=== PATIENT | female | born 1985 | race Caucasian/White ===

== ENCOUNTER 2017-02-17 14:02 | Outpatient (CLI) | payer BC ==
[2017-02-17 14:25] LABS: APPEARANCE,URINE CLEAR; BILIRUBIN,URINE NEGATIVE (NEGATIVE); GLUCOSE, URINE NEGATIVE (NEGATIVE); KETONES,URINE TRACE mg/dL (NEGATIVE); LEUKOCYTE ESTERASE,URINE NEGATIVE (NEGATIVE); NITRITE,URINE NEGATIVE (NEGATIVE); PROTEIN,URINE NEGATIVE (NEGATIVE); URINE SPECIFIC GRAVITY 1.005; UROBILINOGEN,URINE NEGATIVE mg/dL (<2.0)
[2017-02-17 14:42] LABS: URINE BARBITURATES SCREEN NEGATIVE; URINE METHADONE SCREEN NEGATIVE; URINE OPIATES LOW NEGATIVE; URINE PHENCYCLIDINE SCREEN NEGATIVE
[2017-02-17] MEDS ORDERED: RINGERS SOLUTION,LACTATED 1,000 ML IV ONE (15:00)
--- NOTE | 2017-02-17 21:43 | RADIOLOGY REPORT (SQ) ---
EXAM DESCRIPTION: U/S OB LIMITED COMPLETED DATE/TIME: 02/17/2017 9:36 pm REASON FOR STUDY: GERMAIN, [place] COMPARISON: None. TECHNIQUE: Limited transabdominal grayscale ultrasound for evaluation of specific requested obstetri aydee parameters. LIMITATIONS: None. FINDINGS: GERMAIN: 9.4 cm. FHR: 130 beats per minute. PRESENTATION: Cephalic. OTHER: No other significant findings. IMPRESSION: LIMITED OBSTETRICAL ULTRASOUND WITH MEASURED PARAMETERS DELINEATED ABOVE. Trimester of : 3rd trimester. TECHNICAL DOCUMENTATION: JOB ID: [id number] [employer]- All Rights Reserved
--- NOTE | 2017-02-17 22:39 | Non Stress Test Report ---
Non Stress Test Datetime Report Generated by CPN: 02/17/2017 22:39 DEMOGRAPHIC EGA NST: 37.1 INDICATION Indication for Study: Ordered by Provider; Other Indication for Study (NST) Other: LC MONITORING Monitor Explained: Monitor Explained; Test Explained; Patient Verbalized Understanding Time on Monitor: 02/17/2017 14:17 Time off Monitor: 02/17/2017 20:51 NST Duration: 394 NST INTERVENTIONS NST Interventions: IV Fluids Physician Notified NST: Dr Mcdermott BABY A: [id number] BABY A Movement : Present Contraction Frequency : Irregular FHR Baseline : 135 Accelerations : 15X15 Decelerations : None Variability : Moderate 6-25bpm NST Review: Meets Criteria for Reactive NST NST Review and Verified By : any alexandre NST Results: Reactive NST REPORT Report Trigger: Send Report
== END 2017-02-17 22:01 | disposition home or self-care (01) ==
LOC: LC 14:02 → LR 17:15 → UNDOADMIN 17:15 → LC 22:01
PROVIDERS: ATTEND Obstetrics & Gynecology Gynecology
DX: Z34.83 Encounter for supervision of other normal pregnancy, third trimester (principal); Z3A.37 37 weeks gestation of pregnancy
CPT/HCPCS: 59025; 76815; 80307; 81001

== ENCOUNTER 2017-03-09 10:46 | Inpatient (IN) | payer BC ==
[2017-03-09] MEDS ORDERED: PENICILLIN G POTASSIUM 5,000,000 UNIT in DEXTROSE 5%-WATER 100 ML IV ONE (11:38)
[2017-03-09] MEDS ORDERED: RINGERS SOLUTION,LACTATED 1,000 ML IV ONE (11:40)
[2017-03-09] MEDS ORDERED: RINGERS SOLUTION,LACTATED 1,000 ML IV PRN (11:40)
[2017-03-09] MEDS ORDERED: OXYTOCIN/NORMAL SALINE 20 UNIT/1,000 ML RTUINJ IV PRN (11:44)
[2017-03-09 11:51] LABS: AMNISURE (ROM) NEGATIVE (NEGATIVE)
[2017-03-09] MEDS ORDERED: MISOPROSTOL 0.2 MG TABLET ONE (12:38)
[2017-03-09] MEDS ORDERED: LIDOCAINE 1% INJ-PF (10 MG/ML) 30 ML SDV ONE (12:38)
[2017-03-09] MEDS ORDERED: OXYTOCIN/NORMAL SALINE 20 UNIT/1,000 ML RTUINJ ONE ×2 (12:38→14:41)
[2017-03-09 13:47] LABS: ABSOLUTE EOSINOPHILS # (AUTO) 0.1 10^3/uL (0.0-0.6); ABSOLUTE LYMPHOCYTES (AUTO) 2.1 10^3/uL (0.5-4.7); ABSOLUTE MONOCYTES (AUTO) 0.5 10^3/uL (0.1-1.4); ABSOLUTE NEUT (AUTO) 7.7 10^3/uL (1.7-8.2); BASOPHILS % (AUTO) 0.4 % (0-2); EOSINOPHILS % (AUTO) 0.8 % (0-6); HEMATOCRIT 39.9 % (36.0-47.0); HGB HCT DIFFERENCE 2.1; LYMPHOCYTES % (AUTO) 19.8 % (13-45); MEAN CORPUSCULAR HEMOGLOBIN 31.3 pg (27.0-33.4); MEAN CORPUSCULAR HGB CONC 35.1 g/dL (32.0-36.0); MEAN CORPUSCULAR VOLUME 89 fl (80-97); MONOCYTES % (AUTO) 4.9 % (3-13); RED BLOOD COUNT 4.46 10^6/uL (3.72-5.28); RED CELL DISTRIBUTION WIDTH 13.1 % (11.5-14.0); SEGMENTED NEUTROPHILS % (AUTO) 74.1 % (42-78); WHITE BLOOD COUNT 10.4 10^3/uL (4.0-10.5)
[2017-03-09 14:46] LABS: ADD HIVPANEL? NO; HIV (1 AND 2) ANTIBODY NEGATIVE (NEGATIVE)
[2017-03-09 15:14] LABS: APPEARANCE,URINE CLEAR; BILIRUBIN,URINE NEGATIVE (NEGATIVE); GLUCOSE, URINE NEGATIVE (NEGATIVE); KETONES,URINE NEGATIVE (NEGATIVE); LEUKOCYTE ESTERASE,URINE NEGATIVE (NEGATIVE); NITRITE,URINE NEGATIVE (NEGATIVE); PROTEIN,URINE NEGATIVE (NEGATIVE); URINE SPECIFIC GRAVITY 1.008; UROBILINOGEN,URINE NEGATIVE mg/dL (<2.0)
[2017-03-09] MEDS ORDERED: PENICILLIN G-K 5 MILLION UNIT VIAL ONE ×3 (15:20→23:08)
[2017-03-09 15:39] LABS: URINE BARBITURATES SCREEN NEGATIVE; URINE METHADONE SCREEN NEGATIVE; URINE OPIATES LOW NEGATIVE; URINE PHENCYCLIDINE SCREEN NEGATIVE
--- NOTE | 2017-03-09 16:51 | L&D Progress Notes ---
PROGRESS NOTES Datetime Report Generated by CPN: 03/09/2017 16:51 PROGRESS NOTE Impression: Normal Progression of Labor Procedures: Sterile Vag Exam Procedures- Other: Cooks Catheter placement Plan: Continue Present Management; Induction; Cervical Ripening Informed Consent Obtained: Vaginal Delivery; Risks, Benefits and Alternatives Discussed Vital Signs : Within Normal Limits Comment: doing well now on 16 of pitocin. Cvx 2cm. Cooks catheter placed. Pt tolerated well. Epidural and pain meds upon pt request. Pelvis adequate for continue CLAUDETTE. EFW 7-8# VAGINAL EXAM Dilatation: 1 Dilatation: 2 Effacement: 50 Effacement: 50 Station: -3 Station: high Contractions: q 2 MEMBRANES Membranes: Intact Membranes: Intact FETUS A FHR - Baseline: 150 Monitoring: External US Variability: Moderate 6-25bpm Accelerations: 15X15 Decelerations: None FHR Category: Category I : 40.0 Presentation: Vertex SIGNATURE SIGNATURE: [id number];[id number] SIGNATURE: [id number] Signature: with User ID: [email or web address] : I personally evaluated and examined the patient in conjunction with the MLP and agree with the assessment, treatment plan and disposition.
[2017-03-09] MEDS ORDERED: NALBUPHINE HCL INJ 10 MG/1 ML AMPULE INJ ONE (16:54)
[2017-03-09] MEDS ORDERED: NALBUPHINE HCL INJ 10 MG/1 ML AMPULE ONE (17:35)
[2017-03-09] MEDS: PENICILLIN G POTASSIUM 2,500,000 UNIT in DEXTROSE 5%-WATER 50 ML IV SCH ×2 (19:33→23:29)
[2017-03-09] MEDS ORDERED: BUPIVACAINE HCL 0.25 % INJ/PF (2.5 MG/1 ML) 30 ML VIAL ONE (20:11)
[2017-03-09] MEDS ORDERED: EPHEDRINE SULFATE INJ 50 MG/1 ML AMPULE ONE (20:11)
[2017-03-09] MEDS ORDERED: FENTANYL/BUPIVACAINE/NS/PF 200 MCG/100 ML RTUINJ EPI ONE (20:11)
--- NOTE | 2017-03-09 20:15 | L&D Progress Notes ---
PROGRESS NOTES Datetime Report Generated by CPN: 03/09/2017 20:15 PROGRESS NOTE Impression: Normal Progression of Labor; Reassuring Heart Rate; Rupture of Membranes Procedures: Sterile Vag Exam Procedures- Other: Cooks catheter removed at it was in vagina Plan: Continue Present Management; Induction; Anticipate Vaginal Delivery Informed Consent Obtained: Vaginal Delivery; Induction of Labor; Risks, Benefits and Alternatives Discussed Vital Signs : Reviewed Comment: Pt called out and felt big gush of water. SROM with clear fluid. Cooks catheter removed and SROM confirmed. Cvx change noted. SHe desires epidural now. Anticipate . Pelvis adequate for CLAUDETTE VAGINAL EXAM Dilatation: 5 Effacement: 70 Station: -2 MEMBRANES Membranes: Ruptured Amniotic Fluid Color: Clear FETUS A FHR - Baseline: 125 Monitoring: External US Variability: Moderate 6-25bpm Accelerations: 15X15 Decelerations: None FHR Category: Category II FETUS C SIGNATURE: [id number];[id number] Signature: with User ID: [email or web address]
--- NOTE | 2017-03-10 00:26 | L&D Progress Notes ---
PROGRESS NOTES Datetime Report Generated by CPN: 03/10/2017 00:26 PROGRESS NOTE Impression: Normal Progression of Labor; Reassuring Heart Rate Procedures: Scalp Electrode; Sterile Vag Exam Plan: Induction; Anticipate Vaginal Delivery Informed Consent Obtained: Vaginal Delivery; Induction of Labor; Risks, Benefits and Alternatives Discussed Vital Signs : Reviewed; Within Normal Limits Comment: Intermittent late decels which resolve with positioning. Early decels. FSE replaced due to previously placed FSE came off during cervical exam. Prior exam c/w ng bulb cervix. Now with some feta descent and mild change in cervical exam. WIll continue position change and amnioinfusion. If NRFHTs or signs of distress will perform section. Pt and surrogate family area aware. VAGINAL EXAM Dilatation: 7 Effacement: 70 Station: -1 Contractions: q 3-5 MEMBRANES Membranes: Ruptured Amniotic Fluid Color: Clear FETUS A FHR - Baseline: 130 Monitoring: External US Variability: Moderate 6-25bpm Accelerations: 15X15 Decelerations: Early; Late; Variable FHR Category: Category II FETUS C SIGNATURE: [id number];[id number] Signature: Electronically signed by Tg Solis MD ([facility]) on 03/10/2017 at 00:26 with User ID: [email or web address]
[2017-03-10] MEDS ORDERED: LIDOCAINE 2% INJ-PF (20 MG/ML) 10 ML AMPUL ONE (01:44)
[2017-03-10] MEDS ORDERED: PENICILLIN G-K 5 MILLION UNIT VIAL ONE (03:05)
[2017-03-10] MEDS: PENICILLIN G POTASSIUM 2,500,000 UNIT in DEXTROSE 5%-WATER 50 ML IV SCH (03:16)
[2017-03-10] MEDS ORDERED: PROMETHAZINE HCL 25 MG SUPP.RECT PR PRN (04:21)
[2017-03-10] MEDS ORDERED: GLYCERIN/WITCH HAZEL LEAF 1 EACH MED..PAD TP PRN (04:21)
[2017-03-10] MEDS ORDERED: MAGNESIUM HYDROXIDE SUSP 30 ML UDCUP PO PRN (04:21)
[2017-03-10] MEDS ORDERED: PROMETHAZINE HCL 25 MG TABLET PO PRN (04:21)
[2017-03-10] MEDS ORDERED: OXYTOCIN/NORMAL SALINE 20 UNIT/1,000 ML RTUINJ IV PRN (04:21)
[2017-03-10] MEDS ORDERED: BENZOCAINE/MENTHOL AEROSOL SPRAY 56 ML TOP PRN (04:21)
[2017-03-10] MEDS ORDERED: ACETAMINOPHEN 650 MG SUPP.RECT PR PRN (04:21)
[2017-03-10] MEDS ORDERED: PROMETHAZINE HCL INJ 25 MG/1 ML VIAL IV PRN (04:21)
[2017-03-10] MEDS ORDERED: NA PHOS,M-B/NA PHOS,DI-BA (ADULT) 133 ML ENEMA PR PRN (04:21)
[2017-03-10] MEDS ORDERED: ACETAMINOPHEN WITH CODEINE #3 TABLET PO PRN ×2 (04:21)
[2017-03-10] MEDS ORDERED: MEASLES,MUMPS&RUBELLA VACC/PF 0.5 ML VIAL SUBCUT PRN (04:21)
[2017-03-10] MEDS ORDERED: PSEUDOEPHEDRINE HCL 30 MG TABLET PO PRN (04:21)
[2017-03-10] MEDS ORDERED: DIPH/PERTUSS(ACELL)/TETANUS VAC/PF 0.5 ML SYR (>=10YO) IM PRN (04:21)
[2017-03-10] MEDS ORDERED: DIBUCAINE 1% OINTMENT 28 GM TP PRN (04:21)
[2017-03-10] MEDS ORDERED: DIPHENHYDRAMINE HCL 25 MG CAPSULE PO PRN (04:21)
[2017-03-10] MEDS ORDERED: ZOLPIDEM TARTRATE 5 MG TABLET PO PRN (04:21)
--- NOTE | 2017-03-10 05:52 | Delivery Summary ---
Del Sum A-C Datetime Report Generated by CPN: 03/10/2017 05:51 DELIVERY PERSONNEL DELIVERY PERSONNEL: [id number] Delivery Doctor:: Tg Solis MD Anesthesiologist:: Lakhwinder Mora MD Labor and Delivery Nurse:: Kaylen Valentin RNmaintenance painter apprentice Nurse:: Madeleine Delatorre RN Salt Lifter:: Nadia Do RN Chopper Gun Operator/ASH PIT WORKER: Karli Blood CNA MATERNAL INFORMATION Delivery Anesthesia: Epidural Medications After Delivery: Pitocin Drip 20 Units/1000ml NSS; Other-Please Comment Meds After Delivery Comment: Cytotec 1000 WV Estimated Blood Loss (ml): 400 Maternal Complications: None Provider Comments: VMI delivered in Direct OA presentation. No nuchal cord. Shoulders and body delivered without difficulty. Cord doubly clamped and cut and infant to father for skin to skin. Placenta delivered intact spontaneously. FF at U then with intermittent atony. Therefore 1000mcg cytotec WV given. FF at U after cytotec. No perineal lacerations. Good hemostasis. Gestational carrier and baby doing well upon provider leaving the room. Baby doing skin to skin with father. LABOR SUMMARY EDC: 03/09/2017 00:00 No. Babies in Womb: 1 Attempted: No Labor Anesthesia: Epidural LABOR INFORMATION Reason for Induction: Oligohydramnios Onset of Labor: 03/09/2017 20:01 Complete Dilatation: 03/10/2017 03:19 Cervical Ripening Agents: Caba Balloon Oxytocin: Induction Group B Beta Strep: Positive Antibiotics # of Doses: 4 Antibiotics Time of Last Dose: 315 Name of Antibiotic Given: PCN Steroids Given: None Reason Steroids Not Administered: Not Applicable MEMBRANES Membranes Rupture Method: Spontaneous Rupture of Membranes: 03/09/2017 20:01 Length of Rupture (hr): 8.05 Amniotic Fluid Color: Clear Amniotic Fluid Amount: Moderate Amniotic Fluid Odor: Normal STAGES OF LABOR Stage 1 hr: 7 Stage 1 min: 18 Stage 2 hr: 0 Stage 2 min: 45 Stage 3 hr: 0 Stage 3 min: 5 Total Time in Labor hr: 8 Total Time in Labor min: 8 VAGINAL DELIVERY Episiotomy: None Laceration #1: None Laceration Extension #1: N/A Laceration Repair: Not Applicable Sponge Count Correct: N/A Sharps Count Correct: N/A CSECTION DELIVERY Primary Indication: N/A Secondary Indication: N/A CSection Incidence: N/A Labor: N/A Elective: N/A CSection Incision: N/A BABY A INFORMATION Infant Delivery Date/Time: 03/10/2017 04:04 Method of Delivery: Vaginal Born in Route : No : N/A Forceps: N/A Vacuum Extraction: N/A Shoulder Dystocia : No PRESENTATION/POSITION BABY A Presentation: Cephalic Cephalic Presentation: Vertex Vertex Position: OA Breech Presentation: N/A PLACENTA INFORMATION BABY A Placenta Delivery Time : 03/10/2017 04:09 Placenta Method of Delivery: Spontaneous Placenta Status: Delivered SCORES BABY A Heart Rate 1 min: >100 bpm Resp Effort 1 min: Good Cry Reflex Irritability 1 min: Cough or Sneeze or Pulls Away Muscle Tone 1 min: Active Motion Color 1 min: Body [place], Extremities Blue SCORE 1 MIN: 9 Heart Rate 5 min: >100 bpm Resp Effort 5 min: Good Cry Reflex Irritability 5 min: Cough or Sneeze or Pulls Away Muscle Tone 5 min: Active Motion Color 5 min: Body [place], Extremities Blue SCORE 5 MIN: 9 INFORMATION BABY A Gestational Age at Delivery: 40.1 Gestational Status: Full Term- 39- 40.6 Weeks Outcome : Liveborn Infant Condition : Stable Sex: Male IDENTIFICATION BABY A Verification Date/Time: 03/10/2017 04:17 ID Band Number: [id number] Mother's Name Verified: Yes RN Verifying Infant: CBalbir Raines RN Additional Verifying Personnel: Donis Do RN WEIGHT/LENGTH BABY A Birthweight (gm): 3680 Infant Weight (lb): 8 Infant Weight (oz): 2 Infant Length (in): 21.00 Length (cm): 53.34 CORD INFORMATION BABY A No. Cord Vessels: 3 Nuchal Cord : N/A Cord Blood Taken: Yes-For Eval (Mom's Blood Type - or O+) Suction: Mouth; Nose ASSESSMENT BABY A Infant Complications: Multiple Late Decels; Multiple Variable Decels Physical Findings at Delivery: Caput Succedaneum; Puncture Wound from Scalp Electrode Infant Respirations: Appears Normal Skin to Skin: Yes Skin to Skin Time (min): 60 Managed Care Manager/ALS Called : No Care By: Gera Delatorre RN Transferred To: Remains with Mother BABY B INFORMATION : N/A SIGNATURES Signature: with User ID: [email or web address] : I personally evaluated and examined the patient in conjunction with the MLP and agree with the assessment, treatment plan and disposition.
[2017-03-10] MEDS: IBUPROFEN 800 MG TABLET PO SCH ×3 (06:00→21:53)
--- NOTE | 2017-03-10 06:08 | Admission Physical ---
Datetime Report Generated by CPN: 03/10/2017 06:08 CURRENT ADMISSION Chief Complaint: Other Chief Complaint Other: Oligohydramnios noted on sono at [facility] Indication for Induction: Oligohydramnios Indication for Induction: Term, Intrauterine ; Induction of Labor Admit Plan: Admit to Unit; Initiate Labor Induction Protocol ALLERGIES Medication Allergies: No Medication Allergies: No Known Allergies (03/09/2017) Medication Allergies: No Known Allergies (02/17/2017) Latex: No Latex Allergies Food Allergies: None Environmental Allergies: None OBSTETRICAL HISTORY EDC: 03/09/2017 00:00 : 3 Para: 2 Gestational Diabetes: No Rh Sensitization: No Incompetent Cervix: No [place]: No Infertility: No ART Treatment: No Uterine Anomaly: No IUGR: No Hx Previous C/S: No Macrosomia: No Hx Loss/Stillborn: No PIH: No Hx : No Placenta Previa/Abruption: No Depression/PP Depression: No PTL/PROM: No Post Hemorrhage: No Current Procedures: Ultrasound Obstetrical History Comments: G1 - 2010, , Baby Girl G2 - 2012, , Baby Boy G3 - Current - Surrogate SEE RECORDS Alcohol: No Marijuana : No Cocaine: No Other Illicit Drugs: No Cigarettes: Never Smoker. [id number] MEDICAL HISTORY Diabetes: No Blood Transfusion: No Pulmonary Disease (Asthma, TB): No Breast Disease: No Hypertension: No Investigator Cash Shortage Surgery: No Heart Disease: No Hosp/Surgery: Yes Autoimmune Disorder: No Anesthetic Complications: No Kidney Disease: No Abnormal Pap Smear: No Neuro/Epilepsy: No Psychiatric Disorders: No Other Medical Diseases: No Hepatitis/Liver Disease: No Significant Family History: No Varicosities/Phlebitis: No Trauma/Violence : No Thyroid Dysfunction: No Medical History Comments: 2010 - Gallbladder removed; 2011 - Breast Augmentation INFECTIOUS HISTORY Gonorrhea: No Genital Herpes: No Chlamydia: No Tuberculosis: No Syphilis: No Hepatitis: No HIV/AIDS Exposure: No Rash or Viral Illness: No HPV: No PHYSICAL EXAM General: Normal HEENT: Normal Neurologic: Normal Thyroid: Deferred Heart: Normal Lungs: Normal Breast: Deferred Back: Normal Abdomen: Normal Genitourinary Exam: Deferred Extremities: Normal DTRs: Normal Pelvic Type: Adequate Physical Exam Comments: Gravid Vital Signs: Reviewed; Within Normal Limits VAGINAL EXAM Dilatation: 7 Dilatation: 5 Dilatation: 1 Dilatation: 2 Effacement: 70 Effacement: 70 Effacement: 50 Effacement: 50 Station: -1 Station: -2 Station: -3 Station: high Contraction Comments: q 3-5 Contraction Comments: q 2 MEMBRANES Membranes: Ruptured Membranes: Ruptured Membranes: Intact Membranes: Intact Amniotic Fluid Color: Clear Amniotic Fluid Color: Clear FETUS A EGA: 40.0 Monitoring: External US FHR- Baseline: 150 Variability: Moderate 6-25bpm Accelerations: 15X15 Decelerations: None FHR Category: Category I Presentation: Vertex Admit Comment: Surrogate-Gestational carrier Synthroid for IVF GBS positive-antibiotics ordered Oligohydramnios Plan: IOL and Cook's catheter PLANS FOR LABOR AND DELIVERY Labor and Delivery: None Pain Management: Epidural Feeding Preference: Formula Benefit of Breast Feed Discussed: Yes INFORMED CONSENT Informed Consent Obtained: Vaginal Delivery; Induction of Labor; Risks, Benefits and Alternatives Discussed Informed Consent Obtained: Vaginal Delivery; Induction of Labor; Risks, Benefits and Alternatives Discussed Informed Consent Obtained: Vaginal Delivery; Risks, Benefits and Alternatives Discussed Assignment: Tg Solis MD Signature: with User ID: Rob : with User ID: [email or web address] : I personally evaluated and examined the patient in conjunction with the MLP and agree with the assessment, treatment plan and disposition.
[2017-03-10] MEDS ORDERED: FAMOTIDINE 20 MG TABLET PO SCH (10:00)
[2017-03-10] MEDS: PRENATAL VITAMIN W DHA CAPSULE PO SCH (10:16)
[2017-03-10] MEDS: DOCUSATE SODIUM 100 MG CAPSULE PO SCH ×2 (10:17→17:14)
[2017-03-10] MEDS: FERROUS SULFATE 325 MG TABLET PO SCH ×2 (10:17→17:14)
[2017-03-10] MEDS: SENNOSIDES/DOCUSATE 8.6-50 MG 1 EACH TABLET PO SCH (10:17)
[2017-03-10] MEDS ORDERED: METHYLERGONOVINE MALEATE 0.2 MG TABLET PO ONE (13:00)
[2017-03-10] MEDS: METHYLERGONOVINE MALEATE 0.2 MG TABLET PO SCH (17:14)
[2017-03-11] MEDS: METHYLERGONOVINE MALEATE 0.2 MG TABLET PO SCH ×2 (00:17→06:22)
[2017-03-11] MEDS: IBUPROFEN 800 MG TABLET PO SCH (06:25)
[2017-03-11 07:59] LABS: HEMATOCRIT 37.4 % (36.0-47.0); HEMOGLOBIN 12.8 g/dL (12.0-15.5); MEAN CORPUSCULAR HEMOGLOBIN 30.9 pg (27.0-33.4); MEAN CORPUSCULAR HGB CONC 34.2 g/dL (32.0-36.0); MEAN CORPUSCULAR VOLUME 91 fl (80-97); RED BLOOD COUNT 4.14 10^6/uL (3.72-5.28); RED CELL DISTRIBUTION WIDTH 13.3 % (11.5-14.0); WHITE BLOOD COUNT 13.3 10^3/uL (4.0-10.5)
[2017-03-11] MEDS: SENNOSIDES/DOCUSATE 8.6-50 MG 1 EACH TABLET PO SCH (10:09)
[2017-03-11] MEDS: FERROUS SULFATE 325 MG TABLET PO SCH (10:09)
[2017-03-11] MEDS: DOCUSATE SODIUM 100 MG CAPSULE PO SCH (10:10)
[2017-03-11] MEDS: PRENATAL VITAMIN W DHA CAPSULE PO SCH (10:10)
--- NOTE | 2017-03-11 10:23 | PDOC PROGRESS REPORT ---
Subjective-OB Subjective: Post Delivery Day: 32 year old. Denies any needs at this time was taking po methergine for clots ff@u-1 mild lochia reports big clot this morning with no follow up bleeding slept well with ambien ambulating well d/c home with follow up d/c methergine precautions reviewed Physical Exam (OB) Vital Signs: Temp Pulse Resp BP Pulse Ox 97.4 F 71 16 118/81 100 03/11/17 09:26 03/11/17 09:26 03/11/17 09:26 03/11/17 09:26 03/11/17 09:26 Intake & Output 03/10/17 03/11/17 03/12/17 06:59 06:59 06:59 Weight 79.15 kg - PIH/Pre-Eclampsia DTR's: 2 + Clonus: Negative Headache: Absent Epigastric Pain: No Visual Changes: No - Lochia Lochia Amount: Small 10-25 ml Lochia Color: Rubra/Red - Abdomen Description: Soft, Round Hernia Present: No Fundal Description: Firm, Midline Fundal Height: u/u - u/2 Objective-Diagnostic Laboratory: 03/11/17 07:25 03/11/17 07:25 WBC 13.3 H RBC 4.14 Hgb 12.8 Hct 37.4 MCV 91 MCH 30.9 MCHC 34.2 RDW 13.3 Plt Count 183
--- NOTE | 2017-03-11 10:25 | PDOC DISCHARGE SUMMARY ---
Final Diagnosis Discharge Date: 03/11/17 - Final Diagnosis (1) Oligohydramnios Is this a current diagnosis for this admission?: Yes Discharge Data - Discharge Medication Home Medications: Levothyroxine Sodium 25 mcg PO DAILY 02/17/17 No122/Iron/Folic Acid [ Multi Tablet] 1 each PO DAILY 02/17/17 Reason(s) for Admission: Induction of Labor Procedures: NST, Ultrasound Intrapartum Procedure(s): Spontaneous Vaginal Delivery - Diagnosis Test Laboratory: Temp Pulse Resp BP Pulse Ox 97.4 F 71 16 118/81 100 03/11/17 09:26 03/11/17 09:26 03/11/17 09:26 03/11/17 09:26 03/11/17 09:26 03/09/17 03/09/17 03/11/17 12:49 14:45 07:25 RBC 4.46 4.14 Hgb 14.0 12.8 Hct 39.9 37.4 Urine Opiates Screen NEGATIVE - Discharge information/Instructions Discharge Activity: Activity As Tolerated Discharge Diet: Regular Disposition: HOME, SELF-CARE Follow up with: [facility] in: 4
[2017-03-11 11:10] VITALS: BP 118/65
== END 2017-03-11 11:45 | disposition home or self-care (01) | DRG 775 ==
LOC: LC 10:46 → LR 11:44 → 2S 03-10 06:07
PROVIDERS: ADMIT Student in an Organized Health Care Education/Training Program; ATTEND Student in an Organized Health Care Education/Training Program
PROC: 10E0XZZ Delivery of Products of Conception, External Approach (ICD-10-PCS; principal; 2017-03-10)
DX: O41.03X0 Oligohydramnios, third trimester, not applicable or unspecified (principal); O99.824 Streptococcus B carrier state complicating childbirth; O76 Abnormality in fetal heart rate and rhythm complicating labor and delivery; O62.2 Other uterine inertia; Z3A.40 40 weeks gestation of pregnancy; Z37.0 Single live birth
CPT/HCPCS: 36415; 80307; 81001; 84112; 85025; 85027; 86592; 86701; 86850; 86900; 86901; C1726; J2300; J2540; J2590; J3490; Q0114